=== PATIENT | female | born 1990 | race Hispanic/Latino ===

== ENCOUNTER 2018-08-14 22:09 | Emergency (ER) | payer MEDICAID ==
[2018-08-15] MEDS ORDERED: ACETAMINOPHEN ELIXIR 325 MG/10.15ML UDCUP ONE (00:23)
[2018-08-15] MEDS ORDERED: DiphenhydrAMINE HCL 50 MG/ML VIAL ONE (00:43)
[2018-08-15] MEDS ORDERED: LORAZEPAM 2 MG/ML 1 ML VIAL ONE (00:43)
[2018-08-15 00:45] LABS: BASOPHILS % (AUTO) 0.1 % (0.0-5.0); LYMPHOCYTES % (AUTO) 17.2 % (21.0-51.0); MEAN CORPUSCULAR HEMOGLOBIN 30.1 pg (27.0-33.0); MEAN CORPUSCULAR HGB CONC 33.9 g/dL (32.0-36.0); MEAN CORPUSCULAR VOLUME 88.9 fL (79-99); MONOCYTES % (AUTO) 8.2 % (3.0-13.0); NEUTROPHILS % (AUTO) 74.5 % (40.0-77.0); PLATELET COUNT (AUTO) 250 K/uL (130-400); RED BLOOD CELL COUNT(AUTO) 4.28 MIL/uL (4.00-5.50); RED CELL DISTRIBUTION WIDTH 14.1 % (11.0-15.5); WHITE BLOOD COUNT (AUTO) 12.1 K/uL (4.8-10.8)
[2018-08-15 00:51] LABS: CREATININE 0.3 mg/dL (0.5-1.5); POTASSIUM 3.7 mmol/L (3.5-5.1)
[2018-08-15 00:56] LABS: ALBUMIN 3.7 g/dL (3.5-5.0); BILIRUBIN,TOTAL 0.5 mg/dL (0.2-1.0); TOTAL PROTEIN, SERUM 7.5 g/dL (6.0-8.3)
[2018-08-15] MEDS ORDERED: IOHEXOL-350 50ML VIAL IV ONE (01:08)
[2018-08-15] MEDS ORDERED: LEVOFLOXACIN 500 MG/D5W 100 ML 100 ML ONE ×2 (02:26→15:26)
[2018-08-15] MEDS ORDERED: SODIUM CHLORIDE 0.9% 1000ML 1,000 ML IV SCH (02:33)
[2018-08-15] MEDS ORDERED: ONDANSETRON HCL 4 MG/2 ML VIAL IV PRN (02:45)
[2018-08-15] MEDS ORDERED: ACETAMINOPHEN 325 MG TAB PO PRN ×2 (02:45)
[2018-08-15] MEDS ORDERED: VANCOMYCIN PROTOCOL PER PHARMACY IV PRN (02:45)
[2018-08-15] MEDS ORDERED: CEFTRIAXONE SODIUM 1 GM IV SCH (02:45)
[2018-08-15] MEDS ORDERED: VANCOMYCIN 1GM+NS 250ML 250 ML IV ONE (03:07)
[2018-08-15 03:20] LABS: CRP QUANTITATIVE 6.7 mg/L (0.00-9.0)
--- NOTE | 2018-08-15 08:12 | NUR ---
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 Original plan was to admit patient, however, hospitalist group declined once it was confirmed that ENT is not available. Notified HIM, registration, and ED Director to follow-up on undoing the admission per hospitalist request. Plan is to transfer to higher level of care to a facility with ENT services.
[2018-08-15] MEDS ORDERED: ENOXAPARIN SODIUM 30 MG/0.3 ML SQ SCH (09:00)
[2018-08-15] MEDS ORDERED: FAMOTIDINE 20MG TAB 20 MG TAB PO SCH (09:00)
[2018-08-15 13:51] LABS: BILIRUBIN,URINE NEGATIVE (NEGATIVE); COLOR,URINE YELLOW (YELLOW); GLUCOSE, URINE (UA) NEGATIVE (NEGATIVE); KETONES,URINE 40 mg/dL (NEGATIVE); LEUKOCYTE ESTERASE ,URINE NEGATIVE (NEGATIVE); NITRATE,URINE NEGATIVE (NEGATIVE); OCCULT BLOOD,URINE NEGATIVE (NEGATIVE); PROTEIN,URINE NEGATIVE (NEGATIVE)
[2018-08-15 13:52] LABS: APPEARANCE,URINE SLIGHTLY CLOUDY (CLEAR)
[2018-08-15 14:04] LABS: BACTERIA,URINE Few /HPF (None Seen); RBC,URINE 0-1 /HPF (0-1); WBC,URINE 0-1 /HPF (0-1)
[2018-08-15] MEDS ORDERED: CIPROFLOXACIN HCL 0.2%/HYDROCORT 1% 10 ML OTIC SUSP ONE (15:25)
== END 2018-08-15 16:38 | disposition home or self-care (01) ==
LOC: EDH 22:09 → EDHIP 22:10 → UNDOADMOB 22:10 → EDH 08-15 16:38
DX: H70.002 Acute mastoiditis without complications, left ear (principal); H60.92 Unspecified otitis externa, left ear; Z88.0 Allergy status to penicillin; Z98.890 Other specified postprocedural states
CPT/HCPCS: 36415; 70481; 71045; 80053; 81001; 83605; 84145; 85025; 86140; 87040 ×2; 96365; 96366; 96367; 96375; 99285; J1200; J1956 ×2; J2060; J3370; Q9967